=== PATIENT | female | born 1940 | race African-American/Black ===

== ENCOUNTER 2016-03-16 19:19 | Emergency (ER) | payer OTHER, BC ==
[2016-03-16 19:24] VITALS: BP 168/97; PULSE 90; TEMP 98.7; BMI 31.6
[2016-03-16 20:26] LABS: URINE APPEARANCE SLCLOUDY; URINE BILIRUBIN NEGATIVE (NEGATIVE); URINE COLOR STRAW; URINE GLUCOSE (UA) NEGATIVE (NEGATIVE); URINE KETONE NEGATIVE (NEGATIVE); URINE NITRITE NEGATIVE (NEGATIVE); URINE PROTEIN NEGATIVE (NEGATIVE); URINE UROBILINOGEN NEGATIVE E.U./dl (0.2-1.0)
[2016-03-16 20:29] LABS: URINE BLOOD 1+ (NEGATIVE); URINE LEUK ESTERASE 3+ (NEGATIVE)
[2016-03-16 20:35] LABS: URINE RBC 23 /hpf (0-3); URINE WBC 64 /hpf (3-5)
--- NOTE | 2016-03-16 20:36 | PDOC ---
History of Present Illness - General Chief Complaint: Urinary Problem Stated Complaint: UTI Time Seen by Provider: 03/16/16 20:00 History Source: Patient Exam Limitations: No Limitations - History of Present Illness Travel History: No Timing/Duration: reports: constant Quality: reports: mild, moderate Abdominal Pain Onset Location: reports: suprapubic Pain Radiation: reports: no radiation Activities at Onset: reports: none Past History - Travel Traveled outside of the country in the last 30 days: No Close contact w/someone who was outside of country & ill: No - Past Medical History Allergies/Adverse Reactions: Allergies Allergy/AdvReac Type Severity Reaction Status Date / Time oxycodone HCl [From Percodan] Allergy Verified 03/16/16 19:21 oxycodone terephthalate Allergy Verified 03/16/16 19:21 [From Percodan] Home Medications: Ambulatory Orders Atorvastatin Ca [Lipitor] 40 mg PO HS 03/16/16 Lisinopril/Hydrochlorothiazide [Lisinopril-Hctz 20-25 mg Tab] 1 each PO Nitrofurantoin Macrocrystal [Macrodantin -] 100 mg PO BID #14 capsule 03/16/16 Omeprazole 40 mg PO 03/16/16 Pravastatin Sodium [Pravachol (Nf)] 40 mg PO 03/16/16 HTN: Yes Hypercholesterolemia: Yes - Psycho/Social/Smoking Cessation Hx Anxiety: No Suicidal Ideation: No Smoking Status: No Smoking History: Never smoked Have you smoked in the past 12 months: No Number of Cigarettes Smoked Daily: 0 Information on smoking cessation initiated: No Hx Alcohol Use: No Drug/Substance Use Hx: No Substance Use Type: None Review of Systems - Review of Systems Able to Perform ROS?: Yes Is the patient limited Cameroonian proficient: Yes Constitutional: Yes: Symptoms Reported, See HPI, Malaise. No: Fever HEENTM: No: Symptoms Reported Respiratory: No: Symptoms reported ABD/GI: Yes: Symptoms Reported : Yes: Symptoms Reported, See HPI, Burning, Dysuria. No: Hematuria All Other Systems: Reviewed and Negative *Physical Exam - Vital Signs Last Vital Signs Temp Pulse Resp BP Pulse Ox 98.7 F 90 14 168/97 98 03/16/16 19:22 03/16/16 19:22 03/16/16 19:22 03/16/16 19:22 03/16/16 19:22 - Physical Exam General Appearance: Yes: Nourished, Appropriately Dressed. No: Apparent Distress HEENT: positive: GARRETT, Normal ENT Inspection, TMs Normal Neck: positive: Supple. negative: Lymphadenopathy (R), Lymphadenopathy (L) Respiratory/Chest: positive: Lungs Clear, Normal Breath Sounds Gastrointestinal/Abdominal: positive: Soft. negative: Tender Musculoskeletal: positive: Normal Inspection. 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, Fully Oriented, Alert, Normal Mood/ Affect, Normal Response, Motor Strength 06/29 ED Treatment Course - ADDITIONAL ORDERS Additional order review: Laboratory Results 03/16/16 20:05 Urine Color Straw Urine Appearance Slcloudy Urine pH 6.0 Ur Specific [place] 1.004 Urine Protein Negative Urine Glucose (UA) Negative Urine Ketones Negative Urine Blood 1+ H Urine Nitrite Negative Urine Bilirubin Negative Urine Urobilinogen Negative Ur Leukocyte Esterase 3+ H Progress Note - Progress Note Progress Note: Urinary tract infection, will treat with Macrobid *DC/Admit/Observation/Transfer Diagnosis at time of Disposition: UTI (urinary tract infection) Qualifiers: Urinary tract infection type: acute cystitis Hematuria presence: with hematuria Qualified Code(s): N30.01 - Acute cystitis with hematuria - Discharge Dispostion Disposition: HOME Condition at time of disposition: Stable Admit: No - Patient Instructions Printed Discharge Instructions: DI for Urinary Tract Infection (UTI) Additional Instructions: Rest, drink lots of fluids: Teas, water, soups Avoid contact with others until fevers and symptoms resolved Lots of handwashing and good hygiene Continue [id number] medications for symptomatic relief Tylenol or Motrin for fever and pain Continue all of antibiotics until completed Followup with private physician in one week for repeat urinalysis/reevaluation Return to emergency department for worsened symptoms, fevers, dehydration
[2016-03-16] MEDS ORDERED: NITROFURANTOIN MACROCRYSTAL 50 MG CAPSULE (FP) ONE (20:37)
[2016-03-16] MEDS ORDERED: NITROFURANTOIN MACROCRYSTAL 50 MG CAPSULE (FP) PO SCH (20:45)
== END 2016-03-16 20:42 | disposition home or self-care (01) ==
LOC: JERFT 19:19
DX: N30.01 Acute cystitis with hematuria (principal); I10 Essential (primary) hypertension; E78.00 Pure hypercholesterolemia, unspecified
CPT/HCPCS: 81003; 81015; 87086; 99281-25

== ENCOUNTER 2016-05-30 09:21 | Emergency (ER) | payer OTHER, BC ==
[2016-05-30 09:34] VITALS: TEMP 98.1; BMI 29.9
--- NOTE | 2016-05-30 10:49 | PDOC ---
History of Present Illness - General Chief Complaint: Pain Stated Complaint: KIDNEY PAIN Time Seen by Provider: 05/30/16 10:31 History Source: Patient Exam Limitations: No Limitations - History of Present Illness Travel History: No Initial Comments: 05/30/16 10:49 75 yr female with c/o left sided flank pain last night with urinary frequency and urgency for 3 days . Past History - Past Medical History Allergies/Adverse Reactions: Allergies Allergy/AdvReac Type Severity Reaction Status Date / Time oxycodone HCl [From Percodan] Allergy Verified 05/30/16 09:34 oxycodone terephthalate Allergy Verified 05/30/16 09:34 [From Percodan] Home Medications: Ambulatory Orders Lisinopril/Hydrochlorothiazide [Lisinopril-Hctz 20-25 mg Tab] 1 each PO DAILY Pravastatin Sodium [Pravachol (Nf)] 40 mg PO DAILY 03/16/16 Cephalexin [Keflex] 500 mg PO BID #10 capsule 05/30/16 HTN: Yes Hypercholesterolemia: Yes - Psycho/Social/Smoking Cessation Hx Anxiety: No Suicidal Ideation: No Smoking Status: No Smoking History: Never smoked Have you smoked in the past 12 months: No Number of Cigarettes Smoked Daily: 0 Hx Alcohol Use: No Drug/Substance Use Hx: No Substance Use Type: None *Physical Exam - Vital Signs Last Vital Signs Temp Pulse Resp BP Pulse Ox 98.1 F 88 20 140/90 99 05/30/16 09:31 05/30/16 09:31 05/30/16 09:31 05/30/16 09:31 05/30/16 09:31 - Physical Exam General Appearance: Yes: Nourished, Appropriately Dressed HEENT: positive: EOMI, GARRETT, Normal ENT Inspection, TMs Normal, Pharynx Normal Neck: positive: Supple Respiratory/Chest: positive: Lungs Clear, Normal Breath Sounds Cardiovascular: positive: Regular Rhythm, Regular Rate Gastrointestinal/Abdominal: positive: Normal Bowel Sounds, Soft. negative: Tender Musculoskeletal: positive: Normal Inspection. negative: CVA Tenderness, CVA Tenderness (R), CVA Tenderness (L), Decreased Range of Motion Extremity: positive: Normal Capillary Refill, Normal Inspection, Normal Range of Motion Integumentary: positive: Normal Color, Dry, Warm Neurologic: positive: Fully Oriented, Alert, Normal Mood/Affect, Normal Response , Motor Strength 06/29 Medical Decision Making - Medical Decision Making 05/30/16 11:27 cc: urinary urgency and frequency had flank pain last night has resolved on arrival pt states she drank a lot of water and cranberry juice today no fever no nvd no chills *DC/Admit/Observation/Transfer Diagnosis at time of Disposition: UTI (urinary tract infection) Qualifiers: Urinary tract infection type: acute cystitis Hematuria presence: without hematuria Qualified Code(s): N30.00 - Acute cystitis without hematuria - Discharge Dispostion Disposition: HOME Condition at time of disposition: Good - Prescriptions Prescriptions: Cephalexin [Keflex] 500 mg PO BID #10 capsule - Patient Instructions Additional Instructions: drink pleanty of water take the Keflex antibiotic as prescribed for 5 days follow with your doctor in one week return to ER for any worsening symptoms
[2016-05-30 10:59] LABS: URINE APPEARANCE CLEAR; URINE BILIRUBIN NEGATIVE (NEGATIVE); URINE BLOOD NEGATIVE (NEGATIVE); URINE COLOR STRAW; URINE GLUCOSE (UA) NEGATIVE (NEGATIVE); URINE KETONE NEGATIVE (NEGATIVE); URINE NITRITE NEGATIVE (NEGATIVE); URINE PROTEIN NEGATIVE (NEGATIVE); URINE UROBILINOGEN NEGATIVE E.U./dl (0.2-1.0)
[2016-05-30 11:02] LABS: URINE LEUK ESTERASE 2+ (NEGATIVE)
[2016-05-30 11:16] LABS: URINE RBC 1 /hpf (0-3); URINE WBC 2 /hpf (3-5)
[2016-05-30 11:35] VITALS: BP 131/77; PULSE 78
== END 2016-05-30 11:35 | disposition home or self-care (01) ==
LOC: JER 09:21
DX: N30.00 Acute cystitis without hematuria (principal); I10 Essential (primary) hypertension; E78.00 Pure hypercholesterolemia, unspecified
CPT/HCPCS: 81003; 81015; 87077; 87086; 99282-25

== ENCOUNTER 2016-11-09 10:20 | Emergency (ER) | payer OTHER, BC ==
[2016-11-09 10:38] VITALS: BP 158/79; PULSE 92; TEMP 97.8; BMI 30.7
[2016-11-09 11:20] LABS: URINE APPEARANCE SLCLOUDY; URINE BILIRUBIN NEGATIVE (NEGATIVE); URINE BLOOD NEGATIVE (NEGATIVE); URINE COLOR LTYELLOW; URINE GLUCOSE (UA) NEGATIVE (NEGATIVE); URINE KETONE NEGATIVE (NEGATIVE); URINE NITRITE NEGATIVE (NEGATIVE); URINE PROTEIN NEGATIVE (NEGATIVE); URINE UROBILINOGEN NEGATIVE mg/dL (0.2-1.0)
[2016-11-09 11:21] LABS: URINE LEUK ESTERASE 3+ (NEGATIVE)
--- NOTE | 2016-11-09 11:25 | PDOC ---
History of Present Illness - General Chief Complaint: Urinary Problem Stated Complaint: POSSIBLE UTI Time Seen by Provider: 11/09/16 11:08 History Source: Patient Exam Limitations: No Limitations - History of Present Illness Initial Comments: 11/09/16 11:20 75 year old female with history of HTN and cholesterol denies surgical history presents with 3 days of pain in left lower quadrant accompanied by frequency with urination. Denies burning with urination flank pain, fever chills or hesitency. Also denies constipation with normal bowel movement this am. Reports no pain today treated it with increase intake of water. 11/09/16 11:22 Timing/Duration: reports: resolved prior to arrival Quality: reports: mild Abdominal Pain Onset Location: reports: LLQ Pain Radiation: reports: no radiation Activities at Onset: reports: none Treatment Prior to Arrive: improves with: other (increase intake of water.) Aggravating Factors: improves with: None Alleviating Factors: improves with: Voiding Past History - Travel Traveled outside of the country in the last 30 days: No Close contact w/someone who was outside of country & ill: No - Past Medical History Allergies/Adverse Reactions: Allergies Allergy/AdvReac Type Severity Reaction Status Date / Time oxycodone HCl [From Percodan] Allergy Verified 11/09/16 10:36 oxycodone terephthalate Allergy Verified 11/09/16 10:36 [From Percodan] Home Medications: Ambulatory Orders Lisinopril/Hydrochlorothiazide [Lisinopril-Hctz 20-25 mg Tab] 1 each PO DAILY Pravastatin Sodium [Pravachol (Nf)] 40 mg PO DAILY 03/16/16 Cephalexin [Keflex] 500 mg PO BID #10 capsule 05/30/16 Acetaminophen [Acetaminophen ER] 650 mg PO QID #20 tablet.er 11/09/16 HTN: Yes Hypercholesterolemia: Yes - Psycho/Social/Smoking Cessation Hx Anxiety: No Suicidal Ideation: No Smoking Status: No Smoking History: Never smoked Have you smoked in the past 12 months: No Number of Cigarettes Smoked Daily: 0 Hx Alcohol Use: No Drug/Substance Use Hx: No Substance Use Type: None Abd/GI Specific PMHX - Complaint Specific PMHX Colitis: No Diverticulitis: No Gall Bladder Disease: No GERD: No Hepatitis: No Irritable Bowel Synd (IBS): No Pancreatitis: No GI Ulcer Disease: No Review of Systems - Review of Systems Able to Perform ROS?: Yes Is the patient limited Luxembourgish proficient: Yes Constitutional: No: Chills, Fever, Weakness HEENTM: No: Ear Discharge, Nose Pain, Nose Congestion, Hearing Loss, Throat Swelling Respiratory: No: Cough, Orthopnea, Shortness of Breath, Wheezing Cardiac (ROS): No: Chest Pain, Lightheadedness ABD/GI: Yes: Abdominal cramping. No: Blood Streaked Bowels, Nausea, Poor Appetite, Vomiting, Indigestion : Yes: Frequency. No: Burning, Dysuria, Discharge, Flank Pain, Hematuria, Incontinence, Urgency Musculoskeletal: No: Back Pain, Gout, Joint Pain, Muscle Weakness Integumentary: No: Bruising, Erythema Neurological: No: See HPI, Tingling, Tremors Psychiatric: No: Frequent Crying, Mood Swings Endocrine: No: Excessive Sweating, Increased Hunger, Increased Urine Hematologic/Lymphatic: No: Anemia *Physical Exam - Vital Signs Last Vital Signs Temp Pulse Resp BP Pulse Ox 97.8 F 92 H 19 158/79 96 11/09/16 10:36 11/09/16 10:36 11/09/16 10:36 11/09/16 10:36 11/09/16 10:36 - Physical Exam General Appearance: Yes: Nourished. No: Apparent Distress HEENT: positive: EOMI, GARRETT, TMs Normal, Pharynx Normal. negative: Rhinorrhea, Sinus Tenderness, Hearing Grossly Normal Neck: positive: Supple. negative: Decreased range of motion, Lymphadenopathy (R ) Respiratory/Chest: positive: Lungs Clear, Normal Breath Sounds. negative: Chest Tender, Respiratory Distress, Paradoxal Breathing Cardiovascular: positive: Regular Rhythm, Regular Rate, S1, S2 Gastrointestinal/Abdominal: positive: Normal Bowel Sounds. 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, Fully Oriented, Alert Medical Decision Making - Medical Decision Making 11/09/16 11:25 75 year old female with history of HTN and hypercholesteremia with lower quadrant pain x 3 days that is now resolved urinalysis sent 11/09/16 11:40 urinalysis negative Rx: acetaminophen for muscular pain as needed referred to pmd for follow up *DC/Admit/Observation/Transfer Diagnosis at time of Disposition: Hip pain, left - Discharge Dispostion Disposition: HOME Condition at time of disposition: Good Admit: No - Prescriptions Prescriptions: Acetaminophen [Acetaminophen ER] 650 mg PO QID #20 tablet.er - Referrals Referrals: Pato Pyle MD [Primary Care Provider] - 1 week - Patient Instructions Printed Discharge Instructions: Help for Hip Pain Additional Instructions: Activity as tolerated. Continue to drink water for hydration, please follow up with primary physician in one week. May return if pain return or worsen
[2016-11-09 13:00] LABS: URINE BACTERIA RARE /hpf (NONE SEEN); URINE MUCUS RARE; URINE WBC 14 /hpf (3-5)
== END 2016-11-09 11:51 | disposition home or self-care (01) ==
LOC: JERFT 10:20
DX: M25.552 Pain in left hip (principal); I10 Essential (primary) hypertension; E78.00 Pure hypercholesterolemia, unspecified
CPT/HCPCS: 81003; 81015; 87086; 99281-25

== ENCOUNTER 2017-02-09 16:19 | Emergency (ER) | payer OTHER, BC ==
[2017-02-09 16:24] VITALS: BP 119/62; PULSE 105; TEMP 97.8; BMI 29.9
--- NOTE | 2017-02-09 17:16 | PDOC ---
History of Present Illness - General Chief Complaint: Bite Stated Complaint: WOUND Time Seen by Provider: 02/09/17 16:33 History Source: Patient Exam Limitations: No Limitations - History of Present Illness Initial Comments: 02/09/17 17:18 I chief complaint: Itchy area right forearm and left lower leg questionable insect bite History of present illness: Patient is a 76-year-old female with history of hypertension and hyperlipidemia here today complaining of itchiness of her right forearm and left calf is yesterday. Patient believes that she was bit by an insect unsure of what kind. Patient reports that area is quite itchy patient took Benadryl with some relief itchiness last night. Patient denies any difficulty swallowing or breathing. Timing/Duration: changing over time Severity: mild Associated Symptoms: reports: other (itchiness rt.forearm, left calf ) Past History - Past Medical History Allergies/Adverse Reactions: Allergies Allergy/AdvReac Type Severity Reaction Status Date / Time oxycodone HCl [From Percodan] Allergy Verified 02/09/17 16:24 oxycodone terephthalate Allergy Verified 02/09/17 16:24 [From Percodan] Home Medications: Ambulatory Orders Lisinopril/Hydrochlorothiazide [Lisinopril-Hctz 20-25 mg Tab] 1 each PO DAILY Pravastatin Sodium [Pravachol -] 40 mg PO DAILY 03/16/16 Hydrocortisone 1% Cream [Hytone 1% Cream -] 1 applic TP BID #1 tube 02/09/17 COPD: No HTN: Yes Hypercholesterolemia: Yes - Suicide/Smoking/Psychosocial Hx Smoking Status: No Smoking History: Never smoked Have you smoked in the past 12 months: No Number of Cigarettes Smoked Daily: 0 Hx Alcohol Use: No Drug/Substance Use Hx: No Substance Use Type: None Review of Systems - Review of Systems Able to Perform ROS?: Yes Constitutional: No: Symptoms Reported HEENTM: No: Symptoms Reported Respiratory: No: Symptoms reported Cardiac (ROS): No: Symptoms Reported ABD/GI: No: Symptoms Reported : No: Symptoms Reported Musculoskeletal: No: Symptoms Reported Integumentary: Yes: Pruritus (rt. forearm, left calf ) Neurological: No: Symptoms reported *Physical Exam - Vital Signs Last Vital Signs Temp Pulse Resp BP Pulse Ox 97.8 F 105 H 20 119/62 97 02/09/17 16:20 02/09/17 16:20 02/09/17 16:20 02/09/17 16:20 02/09/17 16:20 - Physical Exam General Appearance: Yes: Appropriately Dressed HEENT: positive: Normal ENT Inspection Neck: negative: Lymphadenopathy (R), Lymphadenopathy (L) Respiratory/Chest: positive: Lungs Clear, Normal Breath Sounds. negative: Chest Tender, Respiratory Distress Cardiovascular: positive: Regular Rhythm, Regular Rate, S1, S2 Integumentary: positive: Other (rt forearm medial aspect 2 dot like raised area with 2 cm surrounding erythema, left calf area or erythema 2 cm non raised ) Neurologic: positive: Alert, Normal Response, Responsive Medical Decision Making - Medical Decision Making 02/09/17 17:19 Patient is a 76-year-old female with history of hypertension and hyperlipidemia here today complaining of itchiness of her right forearm and left calf is yesterday. Patient believes that she was bit by an insect unsure of what kind. Patient reports that area is quite itchy patient took Benadryl with some relief itchiness last night. Patient denies any difficulty swallowing or breathing. local reaction insect bite rt.forearm/left calf PLAN: Hydrocortisone 1% cream applied twice a day until resolved Patient to continue taking Benadryl as needed as directed by supply analyst *DC/Admit/Observation/Transfer Diagnosis at time of Disposition: Insect bite of arm, right Qualifiers: Encounter type: initial encounter Qualified Code(s): S40.861A - Insect bite ( nonvenomous) of right upper arm, initial encounter Insect bite of lower leg with local reaction Qualifiers: Encounter type: initial encounter Laterality: right Qualified Code(s): S80.861A - Insect bite (nonvenomous), right lower leg, initial encounter - Discharge Dispostion Disposition: HOME Condition at time of disposition: Stable - Prescriptions Prescriptions: Hydrocortisone 1% Cream [Hytone 1% Cream -] 1 applic TP BID #1 tube - Referrals Referrals: Juancarlos Pisano PA [Primary Care Provider] - - Patient Instructions Additional Instructions: Continue to take Benadryl as needed as for itchiness has recommended by supply analyst Return to emergency room if any difficulty breathing or swallowing or symptoms worsen or new symptoms develop Patient voiced understanding of discharge instructions and all questions were answered - Post Discharge Activity
== END 2017-02-09 17:53 | disposition home or self-care (01) ==
LOC: JER 16:19 → JERFT 16:19
DX: S40.861A Insect bite (nonvenomous) of right upper arm, initial encounter (principal); S80.861A Insect bite (nonvenomous), right lower leg, initial encounter; W57.XXXA Bitten or stung by nonvenomous insect and other nonvenomous arthropods, initial encounter; Y93.89 Activity, other specified; Y92.89 Other specified places as the place of occurrence of the external cause; Y99.8 Other external cause status; I10 Essential (primary) hypertension; E78.5 Hyperlipidemia, unspecified
CPT/HCPCS: 99281-25

== ENCOUNTER 2017-04-29 08:35 | Emergency (ER) | payer BC, OTHER ==
[2017-04-29 08:51] VITALS: BP 132/75; PULSE 85; TEMP 98.1
--- NOTE | 2017-04-29 10:16 | PDOC ---
History of Present Illness - General Chief Complaint: Rash Stated Complaint: RASH Time Seen by Provider: 04/29/17 09:33 - History of Present Illness Initial Comments: 04/29/17 10:08 CHIEF COMPLAINT: insect bites HISTORY OF PRESENT ILLNESS: 76 yo F with hx of HTN and HLD presents to fast track with insect bites to left arm and left ankle. Patient complains of itching. Denies fever, chills, nausea, vomiting, diarrhea. She reports that she ran out of hydrocortisone that was prescribed to her the last time she had insect ites. REVIEW OF SYSTEMS as per HPI PHYSICAL EXAM General Appearance: Well-appearing, appropriately dressed. No apparent distress , no intoxication. HEENT: EOMI, PERRLA, normal ENT inspection, normal voice, TMs normal, pharynx normal. No conjunctival pallor. No photophobia, scleral icterus. Respiratory/Chest: Lungs CTAB. Cardiovascular: RRR. S1, S2. Gastrointestinal/Abdominal: Normal bowel sounds. Abdomen soft, non-distended. No tenderness or rebound tenderness. No organomegaly, pulsatile mass, guarding , hernia, hepatomegaly, splenomegaly. Musculoskeletal/Extremities: Normal inspection. FROM of all extremities, normal capillary refill. Pelvis Stable. No CVA tenderness. No tenderness to extremities, pedal edema, swelling, erythema or deformity. Integumentary: Two erythematous macules to left arm and one to left ankle. Appropriate color, dry, warm. 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 Fully oriented, alert. Appropriate mood/affect. Motor strength 5/5. No appreciable EOM palsy, facial droop or sensory deficit. Past History - Past Medical History Allergies/Adverse Reactions: Allergies Allergy/AdvReac Type Severity Reaction Status Date / Time oxycodone HCl [From Percodan] Allergy Verified 04/29/17 08:48 oxycodone terephthalate Allergy Verified 04/29/17 08:48 [From Percodan] Home Medications: Ambulatory Orders Lisinopril/Hydrochlorothiazide [Lisinopril-Hctz 20-25 mg Tab] 1 each PO DAILY Pravastatin Sodium [Pravachol -] 40 mg PO DAILY 03/16/16 Hydrocortisone 1% Cream [Hytone 1% Cream -] 1 applic TP BID #1 tube 02/09/17 Diphenhydramine HCl [Benadryl -] 25 mg PO Q6H PRN #28 capsule 04/29/17 Hydrocortisone 1% Cream [Hytone 1% Cream -] 1 applic TP QID PRN #1 tube COPD: No HTN: Yes Hypercholesterolemia: Yes - Suicide/Smoking/Psychosocial Hx Smoking Status: No Smoking History: Never smoked Have you smoked in the past 12 months: No Number of Cigarettes Smoked Daily: 0 Hx Alcohol Use: No Drug/Substance Use Hx: No Substance Use Type: None *Physical Exam - Vital Signs Last Vital Signs Temp Pulse Resp BP Pulse Ox 98.1 F 85 19 132/75 95 04/29/17 08:48 04/29/17 08:48 04/29/17 08:48 04/29/17 08:48 04/29/17 08:48 Medical Decision Making - Medical Decision Making 04/29/17 10:16 76 yo F with hx of HTN and HLD presents to fast track with insect bites to left arm and left ankle. benadryl, topical steroids *DC/Admit/Observation/Transfer Diagnosis at time of Disposition: Insect bite - Discharge Dispostion Disposition: HOME Condition at time of disposition: Stable Admit: No - Prescriptions Prescriptions: Diphenhydramine HCl [Benadryl -] 25 mg PO Q6H PRN #28 capsule PRN Reason: itching Hydrocortisone 1% Cream [Hytone 1% Cream -] 1 applic TP QID PRN #1 tube PRN Reason: itching - Referrals Referrals: Pato Pyle MD [Primary Care Provider] - - Patient Instructions Printed Discharge Instructions: DI for Insect Bites and Stings - Post Discharge Activity
== END 2017-04-29 10:19 | disposition home or self-care (01) ==
LOC: JERFT 08:35
DX: S40.862A Insect bite (nonvenomous) of left upper arm, initial encounter (principal); S90.562A Insect bite (nonvenomous), left ankle, initial encounter; W57.XXXA Bitten or stung by nonvenomous insect and other nonvenomous arthropods, initial encounter; Y93.9 Activity, unspecified; Y92.9 Unspecified place or not applicable; I10 Essential (primary) hypertension; E78.5 Hyperlipidemia, unspecified
CPT/HCPCS: 99281-25

== ENCOUNTER 2017-06-06 09:13 | Emergency (ER) | payer OTHER ==
[2017-06-06 09:21] VITALS: BP 163/68; PULSE 93; TEMP 98.8; BMI 30.9
[2017-06-06] MEDS ORDERED: ACETAMINOPHEN WITH CODEINE 300MG/30MG TABLET PO ONE (09:50)
[2017-06-06] MEDS ORDERED: ACETAMINOPHEN WITH CODEINE 300MG/30MG TABLET ONE (09:54)
--- NOTE | 2017-06-06 09:56 | PDOC ---
History of Present Illness - General Chief Complaint: Pain Stated Complaint: LT FOOT PAIN Time Seen by Provider: 06/06/17 09:35 History Source: Patient Exam Limitations: No Limitations - History of Present Illness Initial Comments: 06/06/17 09:52 76-year-old female presents to the ED with complaints of left foot pain which she states began after she was dancing at [employer] with high heels yesterday. Patient states took nothing for the above but tried soaking her foot in absence alt with minimal improvement. Patient states normally takes Tylenol No. 3 for discomfort and denies any liver or kidney disorders. Patient denies any sensory changes distal of discomfort. Patient denies recent injury to the affected area. Patient denies history of gout. Timing/Duration: 24 hours Severity: moderate Associated Symptoms: reports: denies symptoms Past History - Travel Traveled outside of the country in the last 30 days: No - Past Medical History Allergies/Adverse Reactions: Allergies Allergy/AdvReac Type Severity Reaction Status Date / Time oxycodone HCl [From Percodan] Allergy Verified 06/06/17 09:16 oxycodone terephthalate Allergy Verified 06/06/17 09:16 [From Percodan] Home Medications: Ambulatory Orders Lisinopril/Hydrochlorothiazide [Lisinopril-Hctz 20-25 mg Tab] 1 each PO DAILY Pravastatin Sodium [Pravachol -] 40 mg PO DAILY 03/16/16 Hydrocortisone 1% Cream [Hytone 1% Cream -] 1 applic TP BID #1 tube 02/09/17 Diphenhydramine HCl [Benadryl -] 25 mg PO Q6H PRN #28 capsule 04/29/17 Hydrocortisone 1% Cream [Hytone 1% Cream -] 1 applic TP QID PRN #1 tube COPD: No HTN: Yes Hypercholesterolemia: Yes - Suicide/Smoking/Psychosocial Hx Smoking Status: No Smoking History: Never smoked Have you smoked in the past 12 months: No Number of Cigarettes Smoked Daily: 0 Information on smoking cessation initiated: No Hx Alcohol Use: No Drug/Substance Use Hx: No Substance Use Type: None Patient Lives Alone: No Lives with/in: spouse/SO Review of Systems - Review of Systems Able to Perform ROS?: Yes Constitutional: No: Symptoms Reported Musculoskeletal: No: Symptoms Reported Integumentary: Yes: Other (Swelling to left foot) Neurological: No: Symptoms reported *Physical Exam - Vital Signs Last Vital Signs Temp Pulse Resp BP Pulse Ox 98.8 F 93 H 16 163/68 100 06/06/17 09:16 06/06/17 09:16 06/06/17 09:16 06/06/17 09:16 06/06/17 09:16 - Physical Exam General Appearance: Yes: Nourished, Appropriately Dressed. No: Apparent Distress Vascular Pulses: Doralis-Pedis (L): 1+ Extremity: positive: Normal Capillary Refill, Normal Range of Motion. negative : Normal Inspection (noted mild edema an increased warmth to the dorsal aspect over the midshaft of third metatarsal) Integumentary: positive: Normal Color, Warm, Moist, Swelling. negative: Ecchymosis Neurologic: positive: Motor Strength 5/5 (ambulatory) Medical Decision Making - Medical Decision Making 06/06/17 10:08 Patient with complaints of left foot pain after dancing with tight high heels at [employer] yesterday. Patient now complaining of pain to the left midfoot. Patient does not warrant any imaging or further workup. Patient ordered for Tylenol No. 3 as per her request patient be discharged home with the same. *DC/Admit/Observation/Transfer Diagnosis at time of Disposition: Foot pain, left - Discharge Dispostion Disposition: HOME Condition at time of disposition: Good - Referrals Referrals: Pato Pyle MD [Primary Care Provider] - - Patient Instructions Printed Discharge Instructions: DI for Foot Pain Additional Instructions: Elevate when not walking around. apply ice for the next few days as much as you can tolerate May take medication as prescribed only at night while you are not operating any heavy machinery. otherwise you may take Motrin as prescribed During the day. - Post Discharge Activity
== END 2017-06-06 10:17 | disposition home or self-care (01) ==
LOC: JERFT 09:13
DX: M79.672 Pain in left foot (principal); X50.0XXA Overexertion from strenuous movement or load, initial encounter; Y93.41 Activity, dancing; Y92.22 Religious institution as the place of occurrence of the external cause; Y99.8 Other external cause status; I10 Essential (primary) hypertension; E78.00 Pure hypercholesterolemia, unspecified
CPT/HCPCS: 99281-25